=== PATIENT | female | born 1970 | race Caucasian/White ===

== ENCOUNTER 2019-02-15 07:22 | Observation (INO) | payer BC ==
[~2019-02-15] VITALS: Ht 167.6 cm; Wt 58.5 kg
[2019-02-15] VITALS (17 sets, daily range): BP systolic 95–145; BP diastolic 47–79
[~2019-02-15 07:22] MED LIST: cefOXitin Sod 2 GM in D5W 110 ML IVPB ONE
--- NOTE | 2019-02-15 08:48 | Anethesia Preoperative Eval ---
Anesthesia Pre-op PMH/ROS General Date of Evaluation: Feb 15, 2019 Time of Evaluation: 08:55 Anesthesiologist: Adali Peguero CRNA ASA Score: ASA 2 Mallampati Score Class I : Soft palate, uvula, fauces, pillars visible Class II: Soft palate, uvula, fauces visible Class III: Soft palate, base of uvula visible Class IV: Only hard plate visible Mallampati Classification: Class I Surgeon: Marisela Diagnosis: Uterine fibroids Surgical Procedure: laparoscopic assisted vaginal hysterectomy, (B) salpingectomy Anesthesia History: none Social History: smoking Family History: no anesthesia problems Allergies: Coded Allergies: No Known Allergies (Unverified , 02/13/19) Medications: see eMAR Patient NPO?: Yes NPO Date: Feb 15, 2019 NPO Time: 00:00 Past Medical History Cardiovascular: Denies: HTN, CAD, [place], valve dz, arrhythmia, other Pulmonary: Denies: asthma, COPD, RAIMUNDO, other Gastrointestinal/Genitourinary: Reports: other - uterine fibroid, ; Denies: GERD, CRI, ESRD Neurologic/Psychiatric: Denies: dementia, CVA, depression/anxiety, TIA, other Endocrine: Denies: DM, hypothyroidism, steroids, other HEENT: Denies: cataract (L), cataract (R), glaucoma, [place] (L), [place] (R), other Hematology/Immune: Reports: anemia; Denies: DVT, bleeding disorder, other Musculoskeletal/Integumentary: Denies: OA, RA, DJD, DDD, edema, other PMH Narrative: as noted above PSxH Narrative: breast augmentation, myomectomy, ablation Anesthesia Pre-op Phys. Exam Physician Exam Constitutional: NAD Neurologic: CN 2-12 intact Cardiovascular: RRR Respiratory: CTA Gastrointestinal: S/NT/ND Airway Exam Mallampati Score: Class I MO: full Neck: FROM TMD: >3 FB ROM: full Teeth: intact Dentures: no upper, no lower Anesthesia Pre-op A/P Labs Urine Test Test 02/15/19 01:45 Urine HCG, Qualitative Negative (NEGATIVE) Studies Pre-op Studies: EKG - NSR Risk Assessment & Plan Assessment: ASA 2, ok to proceed Plan: GETA Status Change Before Surgery: Adali Graham CRNA Feb 15, 2019 08:48
[2019-02-15] MEDS ORDERED: Midazolam 2mg/2ml Inj ONE (08:55)
[2019-02-15] MEDS ORDERED: Morphine Sulfate 4mg/ml Inj (IV USE ONLY) ONE (08:56)
[2019-02-15] MEDS ORDERED: Neostigmine 1mg/ml 10ml Inj ONE ×3 (08:56→09:00)
[2019-02-15] MEDS ORDERED: fentaNYL 100 mcg/2 mL IV ONE (08:56)
[2019-02-15] MEDS ORDERED: Zemuron 50mg/5ml Inj IV ONE (08:57)
[2019-02-15] MEDS ORDERED: Propofol 200mg/20ml IV ONE (08:58)
[2019-02-15] MEDS ORDERED: Glycopyrrolate 0.2mg/ml 1ml Vial ONE (09:00)
[2019-02-15] MEDS ORDERED: Dexamethasone 4mg/ml vial ONE (09:00)
[2019-02-15] MEDS ORDERED: NS Irrig 1000ml ONE (09:00)
[2019-02-15] MEDS ORDERED: NS Irrig 2000ml IRRIG ONE ×2 (09:00→09:36)
[2019-02-15] MEDS ORDERED: Sterile Water Irrig 1000ml IRRIG ONE (09:00)
[2019-02-15] MEDS ORDERED: Lidocaine 1% MPF 10mg/ml 5ml ONE (09:00)
[2019-02-15] MEDS ORDERED: LR 1000ml ONE ×2 (09:00→14:25)
[2019-02-15] MEDS ORDERED: NKM (09:04)
[2019-02-15] MEDS ORDERED: ProvayBlue 5mg/ml 10ml amp INJ ONE (09:15)
[2019-02-15] MEDS ORDERED: Ropivacaine 5mg/ml Vial 30ml INJ ONE (09:17)
--- NOTE | 2019-02-15 09:26 | Pre-Procedure Note/Attestation ---
Pre-Procedure Note/Attestation Complete Prior to Procedure Planned Procedure: not applicable Procedure Narrative: Laparoscopically Assisted Vaginal Hysterectomy, Bilateral Salpingectomy Indications for Procedure Pre-Operative Diagnosis: Uterine fibroids Attestation I attest that I discussed the nature of the procedure; its benefits; risks and complications; and alternatives (and the risks and benefits of such alternatives ), prior to the procedure, with the patient (or the patient's legal telephone sales representative). I attest that, if there was a reasonable possibility of needing a blood transfusion, the patient (or the patient's legal telephone sales representative) was given the [facility] standardized written summary, pursuant to the [place]al [place] Blood Safety Act ([place] Health and Safety Code # 1645, as amended). I attest that I re-evaluated the patient just prior to the surgery and that there has been no change in the patient's H&P, except as documented below:NONE Joni Antonio MD Feb 15, 2019 09:26
[2019-02-15] MEDS ORDERED: HYDROmorphone 1mg/ml Carpuject SUBQ PRN (13:15)
[2019-02-15] MEDS ORDERED: D5 1/2NS 1,000 ML IV SCH (13:15)
[2019-02-15] MEDS ORDERED: HYDROcodone/Acetamin 5/325 tab ORAL PRN ×2 (13:15→14:15)
--- NOTE | 2019-02-15 13:18 | Brief Operative Note ---
Immediate Post Operative Note Operative Note Pre-op Diagnosis: Uterine fibroids Procedure: Enterolysis, Pelvic Adhesion lysis, LAVH, Bilateral Salpingectomy Post-op Diagnosis: Fibroids - Multiple, Adhesions bladder, bowel, peritoneum, Post-op Diagnosis: same as pre-op Findings: consistent w/pre-op dx studies Surgeon: Joni Antonio Blindstitch Machine Operator: Marina Vasquez Anesthesiologist: Adali Peguero Anesthesia: general Specimen: yes - Uterus, Cervix, bilateral falopian tubes Complications: none Condition: stable Fluids: LR@125 cc/hr Estimated Blood Loss: volume - 200 cc Drains: none Implant(s) used?: No Joni Antonio MD Feb 15, 2019 13:18
--- NOTE | 2019-02-15 13:27 | Immediate Post-Op Evaluation ---
Immediate Post-Op Evalulation Immediate Post-Op Evalulation Procedure: Laparoscopic assisted vaginal hysterectomy, (B) salpingectomy Date of Evaluation: Feb 15, 2019 Time of Evaluation: 13:25 IV Fluids: LR 1500 ml Estimated Blood Loss: 150 ml Urinary Output: 150 ml Blood Pressure Systolic: 128 Blood Pressure Diastolic: 69 Pulse Rate: 76 Respiratory Rate: 10 O2 Sat by Pulse Oximetry: 100 Temperature (Fahrenheit): 97.4 Pain Score (1-10): 0 Nausea: No Vomiting: No Complications none Patient Status: reacts, patent, extubated Drug: Cefazolin 1 mg IV Given Within 1 Hr of Incision: Yes Time Given: 09:35 Adali Peguero CRNA Feb 15, 2019 13:27
[2019-02-15] MEDS: Hydromorphone 0.5mg/0.5ml inj IVP PRN ×3 (13:43→14:29)
--- NOTE | 2019-02-15 14:50 | NUR ---
NURSE NOTES: Patient received from PACU via bed on O2 2LNC at 1450, in stable condition. Patient sleeping, awakes to name. VSS. No pain, or NV, or SOB at this time. Surgical site dressing x3 noted, CDI (2x2 gauze with paper tape), left mid dressing stained. Bilateral SCDs on. FC in place, draining to gravity, y/cl urine. Skin warm, pulses palpable. IV LR at 150 ml/hr connected to IV pump, infusing to LW, site asymptomatic. Bree-pad in place. Provided PO fluids at bedside. All belongings reviewed with recovery aide, at bedside. Addendum: 02/15/19 at 2024 by Nissa Peralta RN Oriented patient to room and call light for safety, bed in lowest position, will continue to monitor.
[2019-02-15] MEDS: Ketorolac 30mg Inj IV SCH ×2 (15:34→23:30)
[2019-02-15] MEDS: LR 1000ml 1,000 ML IV SCH ×2 (15:35→22:01)
--- NOTE | 2019-02-15 16:13 | 48 Hour Post Anesthesia Eval ---
Post Anesthesia Evaluation Procedure: Laparoscopic assisted vaginal hysterectomy, (B) salpingectomy Blood Pressure Systolic: 108 0: 68 Pulse Rate: 67 Respiratory Rate: 14 O2 Sat by Pulse Oximetry: 98 Airway: patent Nausea: No Vomiting: No Hydration Status: adequate Cardiopulmonary Status: stable Mental Status/LOC: patient returned to baseline Follow-up Care/Observations: na Post-Anesthesia Complications: none Follow-up care needed: N/A Kalina Sosa CRNA Feb 15, 2019 16:13
--- NOTE | 2019-02-15 18:30 | NUR ---
NURSE NOTES: Instructed patient on CDB with abdominal splint (pillow to abdomen). Demonstrated to patient, patient returned demonstration, needs additional teaching. Bree-pad checked, no bleeding noted. Updated patient with post op orders, verbalized understanding. Pain 7/10 to surgical site. Medicated with Toradol, Zofran and Dilaudid as ordered, see eMAR. Reassessed pain, 0/10. No emesis. Encouraged PO fluid intake. Will continue to monitor.
--- NOTE | 2019-02-15 19:20 | NUR ---
NURSE NOTES:Patient received from SARITHA Carey Patient A/A/OX4 .Patient denies any pain at this time . no sob / no n/v noted Patient on o2 2l via n/c in placed LW g #20 LR AT 150 CC/HR infusing well. patient abdominal surgical site x3 left dressing with stained.lulu pad checked no bleeding .safety /fall Implemented . call light within reach . bed in low position at all times. will continue to monitor .
--- NOTE | 2019-02-15 19:20 | NUR ---
HAND-OFF: Report given to Anusha GRACE. Addendum: 02/15/19 at 2035 by Nissa Peralta RN Endorsed FC to be discontinued at 0600 on 02/16/19.
[2019-02-16] VITALS: BP 100/59
[2019-02-16 00:01] VITALS: BP 100/59
[2019-02-16] MEDS: LR 1000ml 1,000 ML IV SCH ×2 (03:37→10:44)
[2019-02-16 03:52] VITALS: BP 99/55
--- NOTE | 2019-02-16 06:00 | NUR ---
NURSE NOTES:Patient arriaga catheter discontinued at 06:00 am as ordered by .
[2019-02-16] MEDS: Ketorolac 30mg Inj IV SCH (06:30)
--- NOTE | 2019-02-16 07:30 | NUR ---
HAND-OFF: Report given to PIOTR phan R.N. and to follow up patient voiding for S/P D/C'd F/C.
--- NOTE | 2019-02-16 07:30 | NUR ---
NURSE NOTES: Received report from LESLY Tavares. Rounding done with outgoing nurse. Patient a/o x 4, having breakfast. Abdominal surgical dressing is dry/intact. Left wrist IV is patent. Denies pain at this time. Bed in lowest position, call light within reach. Will continue to monitor.
[2019-02-16 08:00] VITALS: BP 100/46
--- NOTE | 2019-02-16 09:54 | 48 Hour Post Anesthesia Eval ---
Post Anesthesia Evaluation Procedure: Laparoscopic assisted vaginal hysterectomy, (B) salpingectomy Date of Evaluation: Feb 16, 2019 Time of Evaluation: 09:53 Nausea: No Vomiting: No Dominique Sol MD Feb 16, 2019 09:54
--- NOTE | 2019-02-16 09:54 | NUR ---
NURSE NOTES: Pt c/o headache. Dr. Antonio was notified. ordered tylenol 650mg q6 prn for headache. Noted and carried out.
[2019-02-16 12:00] VITALS: BP 100/73
[2019-02-16] MEDS ORDERED: ADVIL200 M2 ORAL (14:32)
--- NOTE | 2019-02-16 14:34 | NUR ---
NURSE NOTES: Patient walked with assistance in hallway. Pt is stable condition.
--- NOTE | 2019-02-16 14:48 | NUR ---
CASE MANAGEMENT: INITIAL REVIEW 02/15/2019 48 YO F PRESENTED TO [facility] CC: PELVIC PAIN PMHx: MYOMECTOMY. UTERINE FIBROIDS. SI:UTERINE FIBROID T 97.6 HR 63 RR 18 B/P 116/76 SATS 99% ON RA HCG (-) IS: OR MEDS PATIENT ADMITTED UNDER OBS TO MED/SURG 02/15/2019 @ 1401 DCP: PATIENT TO BE DISCHARGED TO HOME ONCE MEDICALLY CLEARED. PLAN OF CARE: Pre-op Diagnosis: Uterine fibroids Procedure: Enterolysis, Pelvic Adhesion lysis, LAVH, Bilateral Salpingectomy Post-op Diagnosis: Fibroids - Multiple, Adhesions bladder, bowel, peritoneum. 02/16/2019 DC TO HOME Addendum: 02/18/19 at 1759 by Kassandra Dsouza CM INTERQUAL MET
--- NOTE | 2019-02-16 15:00 | NUR ---
NURSE NOTES: Belongings were checked and given to pt. Discharge instruction was given. IV line, arm band removed. Patient discharged accompanied by in stable condition.
--- NOTE | 2019-02-22 12:08 | Discharge Summary ---
Discharge Summary Discharge Summary _ DATE OF ADMISSION: 02/15/2019 DATE OF DISCHARGE: 02/16/2019 DISCHARGED BY: Dr. Joni Antonio BRIEF HOSPITAL COURSE: Patient is a 48-year-old female, who has uterine fibroids and menorrhagia. Menstrual period lasts for 2 weeks. She was admitted on 02/16/2019 and underwent enterolysis, pelvic adhesions lysis, laparoscopic-assisted vaginal hysterectomy with bilateral salpingectomy. She tolerated procedure well. Postoperatively, she was admitted for postop care. She was continued on IV hydration. She was given pain management. Diet was eventually advanced. Cooper catheter was removed the following day. She was able to void freely. She was eventually discharged home. FINAL DIAGNOSES: Uterine fibroid and menorrhagia PROCEDURE: s/p enterolysis, pelvic adhesion lysis, laparoscopic-assisted vaginal hysterectomy with bilateral salpingectomy DISPOSITION: Patient was discharged home. DISCHARGE MEDICATIONS: Refer to Discharge Medication List. DISCHARGE INSTRUCTIONS: Follow-up in a week. I have been assigned to complete a discharge summary on this account, I was not involved with the patient's management.--DAVID Albrecht Jacqueline Robles NP Feb 22, 2019 12:08
--- NOTE | 2019-02-25 19:45 | Operative Note - Dictated ---
DATE OF OPERATION: 02/15/2019 PREOPERATIVE DIAGNOSIS: Uterine fibroids, previous myomectomy. POSTOPERATIVE DIAGNOSES: Uterine fibroids, multiple, bladder adhesions, bowel adhesions, peritoneal adhesions. PROCEDURE PERFORMED: Extensive enterolysis, extensive lysis of pelvic adhesions, laparoscopically assisted vaginal hysterectomy, and bilateral salpingo-oophorectomies. SURGEON: Joni Antonio M.D. VENEER GLUE SPREADER: Marina Vasquez M.D. ANESTHESIOLOGIST: Adali Peguero CRNA. ANESTHESIA: General. PROCEDURE IN DETAIL: After appropriate consents were signed, the patient was brought to the operating room, placed on table in supine position. General endotracheal anesthesia was induced without complications. The patient was then placed in a dorsal lithotomy position. Perineum, vagina, and abdomen were prepped and draped in the usual fashion for the procedure. The patient was then examined under anesthesia. The uterus appeared to be grossly enlarged and poorly mobile. The cervix was then identified and dilated. Uterine manipulator was placed in the uterine cavity. At this time, the procedure continued at its abdominal portion where an umbilical incision was made, and a Veress needle was advanced, the abdomen was insufflated to 15 mmHg. The abdomen was now visualized and multiple adhesions were identified. There were some adhesions on the anterior abdominal wall, which were taken down both to the right and to the left of the midline. Once these were taken down, a left lower incision was made and a 5 mm instrument was placed through this incision. Additionally, a midline incision was also made for another 5 mm incision and the trocar was placed atraumatically. At this time, additional adhesions were now identified from the bowel to the left pelvic sidewall and to the adnexa on the left side. The adnexa was draped by small bowel adhesion and which extended to the posterior aspect of the uterus. There were additional adhesions from ovary to the left pelvic sidewall. The ovary on the right was less adhesed; however, there were still adhesions from the left ovary to the pelvic sidewall. At this time, adhesiolysis was undertaken and after very careful dissection, the enterolysis and adhesiolysis was completed to fully visualize the ovary on the left and released the ovary away from right pelvic sidewall and the uterine fundal area. At this time, the infundibulopelvic ligament on the left side was finally visualized. The infundibulopelvic on the left could be also visualized and the tube was well identified. At this time, salpingectomy was undertaken with the tube on the right side elevated and dissected along away from the ovary until the right lateral ligament was reached. The same was completed on the left side utilizing cauterization and sharp cutting. The procedure was then continued with coagulation and transection through the round ligaments bilaterally. The broad ligament was transected along its anterior sheath until the bladder was reached. The incision was extended from the left and from the right towards the midline to achieve the bladder flap. There were, however, multiple adhesions in multiple layers from the bladder to the anterior surface of the uterus. These were taken down gradually and after a certain period of time, the anterior bladder flap was fully developed and the cervix was now visualized. At this time, the dissection continued along the broad ligament with identifying of the uterine vessels on the left side, which were cauterized and transected. There were multiple vessels on the left side from the left uterine artery seeing the large fibroid on the left. These were individually identified and transected after thorough cauterization. Once uterine artery supply was interrupted bilaterally, the procedure continued with entering of the vagina with retractor and delineating the anterior vaginal wall along the cervix. This area was entered using sharp dissection and unipolar cautery. The procedure then continued with visualization of all the operative sites, which were fully hemostatic. At this time, the procedure was turned to the vaginal portion where the cervix was grasped and a gradual morcellation of the uterus was undertaken after the uterosacral ligaments were clamped, cut, and suture ligated. Once this was completed, the uterus was gradually morcellated because of its large size and after a period of morcellation, the uterus was removed in its entirety. The posterior cough was now clamped, cut, and suture ligated to completely extricate the uterus. At this time, the posterior vaginal cuff was sutured with running interlocking Vicryl suture bilaterally. A pursestring suture was placed through the peritoneum to completely close the peritoneum. Once this was completed, the vaginal opening was fully closed using running sutures. Once the vaginal portion of the procedure was completed, the abdominal portion was once again restarted with the laparoscope evaluating all the operative sites. There was complete hemostasis noted in the pelvis. The debris and blood were irrigated and fully suctioned. At this time, the patient was now placed in the supine position after all the instruments were removed from the abdomen with all the puncture sites fully hemostatic. Incisions were closed using 0 Vicryl suture at the fascial layer and 4-0 suture at the skin layer along with Steri-Strips and benzoin. The patient was placed in supine position, awakened from general anesthesia, and brought to the recovery room in excellent condition. She tolerated the procedure very well. Joni Antonio M.D. DR: DUC JOB#: [id number] CC: KELLY
== END 2019-02-16 14:25 | disposition home or self-care (01) ==
LOC: SUR 07:22 → EDSTATUS 09:00 → 3E 14:24
DX: D25.9 Leiomyoma of uterus, unspecified (principal); N32.89 Other specified disorders of bladder; K66.0 Peritoneal adhesions (postprocedural) (postinfection); N80.0 Endometriosis of uterus; N92.0 Excessive and frequent menstruation with regular cycle; Z87.891 Personal history of nicotine dependence; Z88.0 Allergy status to penicillin
CPT/HCPCS: 36415; 58554; 81025; 86850; 86900; 86901; 87081; G0378; J0690; J1100; J1170; J1885; J2250; J2270; J2405; J2704; J2710; J2795; J3010; 94003; 94150